=== PATIENT | male | born 1995 | race Caucasian/White ===

== ENCOUNTER 2023-04-30 12:07 | Emergency (ER) | payer MEDICAID, OTHER ==
[~2023-04-30] VITALS: Ht 177.8 cm; Wt 72.6 kg
[2023-04-30] MEDS ORDERED: KETOROLAC TROMETHAMINE INJ 30 MG/ML VIAL ONE (12:44)
[2023-04-30] MEDS: KETOROLAC TROMETHAMINE INJ 60 MG/2 ML VIAL IM ONE (12:50)
[2023-04-30] MEDS ORDERED: NAPR-1009 PO (12:53)
[2023-04-30 13:18] VITALS: BP 138/78; TEMP 98.3; O2SAT 97
== END 2023-04-30 13:19 | disposition home or self-care (01) ==
LOC: ER 13:05
DX: M54.50 Low back pain, unspecified (principal)
CPT/HCPCS: 99283; 96372; J1885